=== PATIENT | male | born 1950 | race Caucasian/White ===

== ENCOUNTER 2016-08-16 11:17 | Observation (INO) | payer MEDICARE, BC ==
[~2016-08-16] VITALS: Ht 175.3 cm; Wt 95.5 kg
[2016-08-16 11:25] LABS: BASOPHILS 0.3 % (0-2); EOSINOPHILS 2.4 % (0-7); HEMATOCRIT 38.6 % (42.0-54.0); HEMOGLOBIN 13.3 g/dL (13.5-17.5); IMMATURE GRANULOCYTES 0.3 % (0-5); LYMPHOCYTES 21.7 % (15-50); MCH 34.1 pg (26.0-34.0); MCHC 34.5 g/dL (31.0-37.0); MEAN PLATELET VOLUME 8.7 fL (7.4-10.4); MONOCYTES 12.4 % (2-11); NEUTROPHILS 62.9 % (40-80); PLATELET COUNT 146 10x3/uL (130-400); WBC 3.8 10x3/uL (4.8-10.8)
[2016-08-16 11:37] LABS: APTT 22.9 SECONDS (22.8-39.4); INR 0.9 (0.85-1.17); PROTIME 11.9 SECONDS (11.6-15.0)
[2016-08-16 11:44] LABS: ALBUMIN 3.8 g/dL (3.4-5.0); ANION GAP 8.9 mmol/L (8-16); BILIRUBIN - TOTAL 0.87 mg/dL (0.2-1.3); CALCIUM 9.6 mg/dL (8.5-10.1); CREATININE - SERUM 1.1 mg/dL (0.6-1.3); POTASSIUM - SERUM 3.9 mmol/L (3.5-5.1); PROTEIN - SERUM 7.3 g/dL (6.4-8.2)
[2016-08-16] MEDS ORDERED: KEPPRA500 MG PO (15:44)
[2016-08-16] MEDS ORDERED: MAXZIDE 75/501 TAB (15:44)
[2016-08-16] MEDS ORDERED: ZOFRAN8 MG (15:44)
[2016-08-16] MEDS ORDERED: INDERAL 40 MG T40 MG (15:44)
[2016-08-16] MEDS ORDERED: K-DUR20 MEQ (15:47)
[2016-08-16 15:52] VITALS: BP 137/75
[2016-08-16 16:03] VITALS: BP 118/56; Ht 175.3 cm; Wt 95.5 kg
[2016-08-16 20:00] VITALS: BP 143/72
[2016-08-17] VITALS: BP 114/58
[2016-08-17 04:00] VITALS: BP 122/67
[2016-08-17 06:59] LABS: BASOPHILS 0.3 % (0-2); EOSINOPHILS 3.2 % (0-7); HEMATOCRIT 36.2 % (42.0-54.0); HEMOGLOBIN 12.3 g/dL (13.5-17.5); LYMPHOCYTES 28.1 % (15-50); MCH 34.1 pg (26.0-34.0); MCV 100.3 fL (80.0-100.0); MEAN PLATELET VOLUME 9.1 fL (7.4-10.4); MONOCYTES 12.3 % (2-11); NEUTROPHILS 56.1 % (40-80); PLATELET COUNT 141 10x3/uL (130-400); RBC 3.61 10x6/uL (4.20-6.10); RDW 15.2 % (11.5-14.5); WBC 3.5 10x3/uL (4.8-10.8)
[2016-08-17 07:14] LABS: CALCIUM 8.9 mg/dL (8.5-10.1); CARBON DIOXIDE 30.5 mmol/L (21.0-32.0); CREATININE - SERUM 1.1 mg/dL (0.6-1.3); POTASSIUM - SERUM 3.5 mmol/L (3.5-5.1)
[2016-08-17 07:32] VITALS: BP 156/74
[2016-08-17 11:20] VITALS: BP 110/65
--- NOTE | 2016-08-17 12:26 | HP ---
PATIENT: BERNICE SAINI MEDICAL RECORD: [id number] ACCOUNT: [id number] LOCATION:D.[facility] [id number] : 48 ADMISSION DATE: 08/16/16 HISTORY AND PHYSICAL EXAMINATION Admission History and Physical DATE OF ADMISSION: 08/16/2016 CHIEF COMPLAINT: Slow speech and left arm weakness. HISTORY OF PRESENT ILLNESS: This is a 66-year-old white male, who was seen by Dr. Jovel for the first time in the office on June 11 as a new patient. He was in his usual state of health earlier today when he had acute onset where he felt like his speech was in slow motion and he was not able to use his left arm and hand. He called his and told her he felt like he was having a stroke. EMS was called. He was brought to the Emergency Department. Apparently at some point, he had a left conjugate gaze. In the Emergency Room, his vital signs were stable and while he was in the Emergency Room, he slowly regained most of his function of the left arm and in his speech. He still has some clumsiness to the arm, but when I am seeing him this evening at 7:35 p.m., he is basically regained all of his function in the left arm and his speech is okay. He is admitted for further evaluation. PAST MEDICAL AND SURGICAL HISTORY: Significant for astrocytoma, was diagnosed last year, he had a craniotomy done on ____ by neurosurgeon at [facility] in [place] and since then, he had radiation therapy to the brain and he had 33 treatments of radiation and oral chemotherapy pills. He is now on any maintenance cycle of some chemotherapy pill, but is currently in between the cycles. He has been on Keppra for seizure precautions and has not had any seizures. OTHER PAST MEDICAL HISTORY: Hypertension. 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 He has also had an appendectomy. HOME MEDICATIONS: Centrum Silver once a day, Dyazide 75/50 one half daily, propranolol 40 mg daily, amlodipine 10 mg daily, Keppra 500 mg twice a day and potassium 20 mEq once a day. ALLERGIES: None known. HABITS: Former smoker, drinks an occasional beer. SOCIAL HISTORY: He is and a retired packaging mechanic. FAMILY HISTORY: Father at 69 of congestive heart failure. He also had some sort of malignancy in the GI tract. Mother at 69 of a small bowel perforation. REVIEW OF SYSTEMS: GENERAL: No major weight changes. HEENT: No particular sinus or allergy problems. RESPIRATORY: No history of emphysema or asthma or pneumonia. CARDIAC: No chest pain or palpitations. GASTROINTESTINAL: No history of diarrhea, constipation or reflux. HISTORY AND PHYSICAL [id number] BERNICE SAINI GENITOURINARY: No significant problems there. MUSCULOSKELETAL: Has a few arthritic aches and pains, but nothing significant. NEUROLOGIC: Has the astrocytoma diagnosis, status post craniotomy. He has had no seizures or headaches or significant headaches. PSYCHIATRIC: Denies depression or melancholia. PHYSICAL EXAMINATION: VITAL SIGNS: Today, temperature 98.6, pulse 62, respirations 16 and blood pressure 118/56. GENERAL: He is awake and alert. He does not appear to be in acute distress. His is at bedside. SKIN: Warm and dry. HEENT: He has a well healed surgical scar on the right posterior aspect of the skull. Rest of HEENT is unremarkable. NECK: Supple. No JVD or bruit. HEART: Regular rate and rhythm without murmur. LUNGS: Clear. ABDOMEN: Soft, flat and nontender. EXTREMITIES: No edema. NEUROLOGICAL: Cranial nerves seem intact. 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 He has no pronator drift when he lifts his left arm. Right is normal as well. No motor weakness in the left arm or leg. LABORATORY DATA: Today, CBC showed a white count of 3800, hemoglobin 13.3, platelets number 146,000. His INR is 0.9. Basic metabolic panel is all okay except BUN a little elevated at 26. LFTs are okay. DIAGNOSTIC DATA: Chest x-ray shows no acute process. CT of the head shows no acute process. There is encephalomalacia in the right occipital lobe consistent with previous surgery. EKG, normal sinus rhythm with a rate of 60. ASSESSMENT: 1. Unilateral arm weakness on the left, transient ischemic attack versus seizure activity. 2. Craniotomy for astrocytoma. 3. Hypertension. PLAN: We will put him on telemetry and we will check carotid Doppler ultrasound, SCDs. We will ask Dr. Loyola to see the patient and evaluate. Other tests and procedures as warranted. TRANSINT:[id number] Voice Confirmation ID: [id number] DOCUMENT ID: [id number] OLIVA ALMAGUER MD at 1226 CC: [id number] DICTATION DATE: 08/16/161939 PUPPY SITTER: 08/17/16 0016 ADM IN [place] [id number] [place] [id number]
== END 2016-08-17 13:59 | disposition home or self-care (01) ==
LOC: D.ER 11:17 → D.MS 13:11 → OBSVTIME 16:00 → D.MS 08-17 13:59
PROVIDERS: Emergency Medicine; ADMIT Family Medicine
DX: R56.9 Unspecified convulsions (principal); I10 Essential (primary) hypertension; Z87.891 Personal history of nicotine dependence

== ENCOUNTER 2018-06-29 15:32 | Inpatient (IN) | payer MEDICARE, BC ==
[~2018-06-29] VITALS: Ht 175.3 cm; Wt 85.2 kg
[~2018-06-29 15:32] MED LIST: INDERAL 40 MG T40 MG PO; K-DUR20 MEQ PO; KEPPRA500 MG PO; MAXZIDE 75/501 TAB PO; ZOFRAN8 MG
--- NOTE | 2018-06-29 17:38 | NUR ---
RECIVED TO ROOM 2124. FROM DR WEST OFFICE. ADMIT ASSESSMENT PER RN.
[2018-06-29 17:55] LABS: BASOPHILS 0.2 % (0-2); HEMATOCRIT 33.8 % (42.0-54.0); HEMOGLOBIN 11.4 g/dL (13.5-17.5); LYMPHOCYTES 12.2 % (15-50); MCH 35.1 pg (26.0-34.0); MCHC 33.7 g/dL (31.0-37.0); MEAN PLATELET VOLUME 8.7 fL (7.4-10.4); MONOCYTES 13.6 % (2-11); PLATELET COUNT 119 10x3/uL (130-400); RBC 3.25 10x6/uL (4.20-6.10); RDW 12.6 % (11.5-14.5); WBC 6.2 10x3/uL (4.8-10.8)
[2018-06-29 18:02] VITALS: BP 137/66; BMI 28.4
[2018-06-29 18:03] LABS: ANION GAP 12.3 mmol/L (8-16); CALCIUM 8.9 mg/dL (8.5-10.1); CARBON DIOXIDE 30.7 mmol/L (21.0-32.0); CREATININE - SERUM 1.1 mg/dL (0.6-1.3)
--- NOTE | 2018-06-29 19:30 | NUR ---
RECEIVED REPORT, WILL ASSUME CARE OF PT, PT IS VISITING WITH FRIENDS, AT BEDSIDE, BED IS LOW, SRX2, CALL LIGHT IN REACH, WILL CONTINUE PLAN OF CARE
[2018-06-29 19:55] VITALS: BP 118/64
[2018-06-29 23:55] VITALS: BP 124/58
[2018-06-30 03:50] VITALS: BP 116/59
[2018-06-30] MEDS ORDERED: NORVASC10 MG PO (08:14)
[2018-06-30] MEDS ORDERED: K-DUR20 MEQ PO (08:15)
[2018-06-30 08:41] VITALS: BP 135/78
--- NOTE | 2018-06-30 09:17 | NUR ---
ASSESSMENT DONE. DENIES NEEDS.
--- NOTE | 2018-06-30 10:12 | NUR ---
I have reviewed this patient and I concur with the Shift Assessment completed by the Licensed Practical Nurse today this shift.
[2018-06-30 13:26] VITALS: Ht 175.3 cm; Wt 85.2 kg
--- NOTE | 2018-06-30 17:23 | NUR ---
WITHOUT CHANGES OR DISTRESS NOTED AT THIS TIME. DENIES NEEDS.
--- NOTE | 2018-06-30 19:30 | NUR ---
RESUMING PATIENT CARE. PATIENT IS ALERT AND ORIENTED. RESPIRATIONS ARE EVEN AND UNLABORED. NO S/S OF DISTRESS. NO C/O PAIN. CALL LIGHT WITHIN REACH. WILL CPOC.
[2018-06-30 20:00] VITALS: BP 111/58
[2018-07-01 00:30] VITALS: BP 120/65; BP 121/62
[2018-07-01 04:00] VITALS: BP 109/60
[2018-07-01 05:51] LABS: BASOPHILS 0.5 % (0-2); EOSINOPHILS 3.7 % (0-7); HEMATOCRIT 33.2 % (42.0-54.0); HEMOGLOBIN 11.3 g/dL (13.5-17.5); IMMATURE GRANULOCYTES 0.2 % (0-5); MCH 35.1 pg (26.0-34.0); MCV 103.1 fL (80.0-100.0); MEAN PLATELET VOLUME 8.9 fL (7.4-10.4); MONOCYTES 17.5 % (2-11); NEUTROPHILS 57.1 % (40-80); PLATELET COUNT 136 10x3/uL (130-400); RBC 3.22 10x6/uL (4.20-6.10); RDW 12.7 % (11.5-14.5)
--- NOTE | 2018-07-01 07:21 | NUR ---
ROUNDING DONE WITH PATIENT LAYING ON LEFT SIDE, DENIES NEEDS AT THIS PRESENT TIME. ON HEART MONITOR SHOWING SR, HR 68. ON ROOM AIR. LEFT FA PIV WITH SALINE LOCK, ORANGE SWAB CAP IN PLACE. WILL MONITOR. ON LOVENOX FOR DVT.
[2018-07-01 07:35] LABS: WBC 4.1 10x3/uL (4.8-10.8)
[2018-07-01 08:34] VITALS: BP 120/70
--- NOTE | 2018-07-01 08:43 | NUR ---
WRAPPED LEFT AC AREA WITH YUE PATIENT HAS REALLY HARIY ARMS AND DOES NOT WANT THEM SHAVED FOR TAPE TO BE HELD.
[2018-07-01 11:31] VITALS: BP 113/61
--- NOTE | 2018-07-01 11:33 | NUR ---
DENIES NEEDS AT THIS TIME. WILL CPOC AND MONITOR FOR CHANGES TO LEFT LOWER LEG.
[2018-07-01 16:17] VITALS: BP 119/65
--- NOTE | 2018-07-01 16:41 | NUR ---
HAS BEEN UP TO VOID SEVERAL TIMES THIS SHIFT. DENIES ANY NEEDS AT THIS TIME. NO FURTHER SWELLING OR REDNESS SEEN TO LEFT LOWER LEG.
--- NOTE | 2018-07-01 19:42 | NUR ---
PT RESTING IN BED. AAO. DENIES ANY NEEDS. NO S/S OF DISTRESS. LEFT AC S/L NAME AND DATE PLACED ON BOARD. PT WILL CALL FOR ASSIST WHEN NEEDED. YOGESH MUÑIZ
[2018-07-01 20:00] VITALS: BP 125/63
--- NOTE | 2018-07-01 21:31 | NUR ---
NIGHT MEDS GIVEN. PT OFFERED NOURISHMENT. DENIES ANY NEED FOR NORCO AT THIS TIME. STATES LEG IS FEELING BETTER. PT WILL CALL FOR ASSIST WHEN NEEDED. WILL CPOC
[2018-07-02 00:30] VITALS: BP 123/70
--- NOTE | 2018-07-02 04:18 | NUR ---
PT ASLEEP. RESP EVEN AND UNLABORED. BEDLOW AND CALL LIGHT IN REACH. NO S/S OF DISTRESS. WILL CPOC
[2018-07-02 05:00] VITALS: BP 131/71
--- NOTE | 2018-07-02 07:30 | NUR ---
ROUNDING DONE WITH PATIENT VOICING NO NEEDS AT THIS TIME. AT BEDSIDE. ON LOVENOX. LEFT AC PIV SEEN WITH SALINE LOCK, ORANGE SWAB CAP IN USE. ON HEART MONITOR SHOWING SR, HR 67. WILL MONITOR.
[2018-07-02 08:32] VITALS: BP 130/76
--- NOTE | 2018-07-02 09:20 | NUR ---
PATIENT TO REFUSE BATH AND LINEN CHANGE, STATES THAT HE IS GOING TO BE DISCHARGED TOMORROW AND WILL WAIT.
[2018-07-02 12:04] VITALS: BP 127/62
--- NOTE | 2018-07-02 12:36 | NUR ---
SITTING ON SIDE OF BED EATING LUNCH. DENIES NEEDS.
--- NOTE | 2018-07-02 13:16 | NUR ---
Nutrition follow-up: Diet: Regular PO intake 100%of meals Labs reviewed Wt: 188# RDN following.
[2018-07-02 16:12] VITALS: BP 117/55
--- NOTE | 2018-07-02 17:33 | NUR ---
SITTING ON SIDE OF BED EATING SUPPER. JUST NOW INTO ROOM. DENIES NEEDS AT THIS TIME. WILL MONITOR FOR NEEDS.
--- NOTE | 2018-07-02 19:15 | NUR ---
BEDSIDE REPORT RECEIVED, PT IS AAO, UP AD TAHMINA. PT HAS FAMILY IN ROOM. NAME AND DATE PLACED ON BOARD. +1 EDEMA ON LEFT LEG PEDAL PULSES +2 BILATERAL LOWER EXTREM. PT HAS NO S/S OF DISTRESS. BEDLOW AND CALL LIGHT IN REACH. WILL CPOC
[2018-07-02 20:00] VITALS: BP 132/68
--- NOTE | 2018-07-02 21:28 | NUR ---
NIGHT MEDICATIONS GIVEN. EDUCATION GIVEN ON ELIQUIS PT VERBALIZED UNDERSTANDING OF MEDICATION. PT IS AAO. DENIES ANY NEEDS AT THIS TIME. NO S/S OF DISTRESS. BEDLOW AND CALL LIGHT IN REACH. WILL CPOC
[2018-07-03 04:00] VITALS: BP 124/61
--- NOTE | 2018-07-03 06:11 | NUR ---
GAVE PT A HANDOUT ON ELIQUIS. MORNING MEDS GIVEN. PT WILL CALL FOR ASSIST WHEN NEEDED. WILL CPOC
--- NOTE | 2018-07-03 07:20 | NUR ---
ASSESSMENT COMPLETED. ALERT AND ORIENTED. TELEMERTY SHOWS SR. LEFT AC SL. SOME REDDNESS AND MILD SWELLING TO LEFT LEG. DENIES ANY NEEDS. WILL MONITOR
[2018-07-03] MEDS ORDERED: MEDROL DOSE PACK4 MG PO (07:46)
[2018-07-03] MEDS ORDERED: ELIQUIS5 MG PO (07:47)
[2018-07-03 08:25] VITALS: BP 151/77
--- NOTE | 2018-07-03 18:52 | MORECARE ---
CASE MANAGEMENT DISCHARGE SUMMARY PATIENT: BERNICE SAINI UNIT: [id number] ADM DATE: 06/29/18 AGE: 68 : 49 SEX: M ROOM/BED: D.5214 AUTHOR: MICHELLE,DOC PHYSICIAN: REFERRING PHYSICIAN: ELMER BARNETT MD DATE OF SERVICE: 07/03/18 Discharge Plan Patient Name: BERNICE SAINI Facility: [facility]:[place] : 1950 Planned Disposition: Home Anticipated Discharge Date: 07/03/18 Discharge Date: 07/03/2018 Expected LOS: 4 Initial Reviewer: [email or web address] Initial Review Date: 07/03/2018 Generated: 07/03/18 7:52 pm Comments DCP- Discharge Planning Updated by [email or web address]: Camron Fernandez on 07/03/18 5:[address] Patient Name: BERNICE SAINI Admission Status: Elective Accout number: [id number] Admission Date: 06-29-2018 : 1950 Admission Diagnosis:PAIN IN LEFT KNEE Attending: ELMER BARNETT Current LOS: 4 Anticipated DC Date: 07-03-2018 Planned Disposition: Home Primary Insurance: MEDICARE A & B Discharge Planning Comments: CM MET WITH PT IN ROOM TO DISCUSS DISCHARGE PLANNING AND NEEDS. PT REPORTS LIVING AT HOME INDEPENDENTLY WITH SPOUSE. PT HAS NO MEDICAL EQUIPMENT AND NO OUTSIDE SERVICES ASSISTING IN THE HOME. CM DISCUSSED AVAILABILITY OF HOME HEALTH, REHAB SERVICES AND MEDICAL EQUIPMENT. PT DENIES DISCHARGE NEEDS, REPORTS HIS WILL PICK HIM UP FOR DISCHARGE HOME. IMPORTANT MESSAGE FROM MEDICARE PROVIDED AND EXPLAINED. COLLECTIONS SPECIALIST NURSE NOTIFIED. Telesales Representative: Camron Fernandez DCPIA - Discharge Planning Initial Assessment Updated by [email or web address]: Camron Fernandez on 07/03/18 6:47 pm * Is the patient Alert and Oriented? Yes * How many steps to enter\exit or inside your home? * PCP DR. BARNETT * Pharmacy [facility] * Preadmission Environment Home with Family * ADLs Independent * Equipment None * Other Equipment NONE * List name and contact numbers for known caregivers / representatives who currently or will assist patient after discharge: MAGDALENA SAINI, SPOUSE, * Verbal permission to speak to the caregivers and representatives has been obtained from the patient. N/A * Community resources currently utilized None * Please name any agencies selected above. NONE * Additional services required to return to the preadmission environment? No * Can the patient safely return to the preadmission environment? Yes * Has this patient been hospitalized within the prior 30 days at any hospital? No Coverage Notice Reviewer: [email or web address] - Camron Patelwell Notice Issued Date-Time: 07/03/2018 9:50 Notice Type: IM Discharge Notice Notice Delivered To: Patient Relationship to Patient: Bilingual Administrative Assistant Name: Delivery Method: HAND - Hand Delivered Dom[place] Days: Prior Verbal Notification: Recipient Understood Notice: Yes Recipient Signature: Yes Med Rec Note Co-signed by Attending: Coverage Notice Comment: Patient Name: BERNICE SAINI Page [id number] at 1852 All edits/amendments must be made on the electronic document DICTATION DATE: 07/03/181850 REGULATORY INTERNSHIP: KRISTA 07/03/181850 RPT#: [id number] DC DATE:07/03/18 STATUS: DIS IN [facility] [address] [place] [address] END OF REPORT
== END 2018-07-03 11:37 | disposition home or self-care (01) | DRG 301 ==
LOC: D.US 15:32 → D.M2 17:08
PROVIDERS: ADMIT Family Medicine; ATTEND Family Medicine
DX: I82.412 Acute embolism and thrombosis of left femoral vein (principal); I10 Essential (primary) hypertension; M10.9 Gout, unspecified; Z85.841 Personal history of malignant neoplasm of brain